=== PATIENT | male | born 1975 | race Two or more races ===

== ENCOUNTER 2025-05-03 09:51 | Day surgery (SDC) | payer MEDICAID ==
[2025-05-01 10:03] LABS: Hematocrit 44.6 % (41.0-53.0); Hemoglobin 14.8 g/dL (13.5-17.5); Mean Corpuscular Hemoglobin 28.3 pg (28.0-32.0); Mean Corpuscular Volume 85.4 fL (80.0-100.0); Nucleated Red Blood Cells % 0.1 %
[2025-05-01 10:15] LABS: INR 1.07 (0.9-1.15); Partial Thromboplastin Time 30.0 SEC (24.5-34.5); Prothrombin Time 11.3 sec (9.3-11.8)
[2025-05-01 11:09] LABS: Alanine Aminotransferase 25 U/L (7-40); Alkaline Phosphatase 75 U/L (46-116); Anion Gap 10 (5-15); Calcium 9.1 mg/dL (8.7-10.4); Carbon Dioxide 26 mmol/L (20-31); Chloride 105 mmol/L (98-107); Potassium 3.8 mmol/L (3.5-5.1); Sodium 141 mmol/L (136-145)
[2025-05-01 11:10] LABS: BUN/Creatinine Ratio 11.2 (10.0-20.0); Blood Urea Nitrogen 10 mg/dL (9-23); Glucose 106 mg/dL (74-106)
[2025-05-01 11:11] LABS: Total Protein 7.1 g/dL (5.7-8.2)
[2025-05-01 11:12] LABS: Albumin 4.2 g/dL (3.2-4.8)
[2025-05-01 11:53] LABS: Bilirubin, Total 0.4 mg/dL (0.2-1.0)
[~2025-05-03] VITALS: Ht 152.4 cm; Wt 70.8 kg
[~2025-05-03 09:51] MED LIST: LOSA-535 PO
[2025-05-03] MEDS: MIDAZOLAM HCL 2MG/2ML 2ml VIAL (1mg/ml) ONE (12:18)
[2025-05-03] MEDS: fentaNYL CITRATE 100 MCG/2 ML VL ONE (12:18)
--- NOTE | 2025-05-03 12:36 | DVHNC2 ---
Procedure - PROCEDURE DATE: 05/03/2025 PROCEDURE PERFORMED BY: Beth Causey MD REFERRING PROVIDER: Patient does not recall the name but is at [facility] PROCEDURE PERFORMED: 1. Colonoscopy with moderate sedation PRE-PROCEDURE DIAGNOSIS: 1. Colon cancer screening POSTPROCEDURE DIAGNOSIS: 1. Normal colon INDICATIONS FOR PROCEDURE: The patient is a 49-year-old male who presents for outpatient colonoscopy for screening MEDICATIONS USED: 4mg of Versed IV and 100 mcg of fentanyl IV DETAILS OF THE PROCEDURE: Informed consent was obtained after risks benefits and alternatives were discussed at length with the patient. The patient gave consent to the procedure as well as the medication used for sedation. The patient was placed in left lateral decubitus position. Digital rectal exam showed no abnormalities. An Olympus pediatric colonoscope was inserted into the rectum and advanced to the cecum. The cecum was identified by the ileocecal valve and the appendiceal orifice. The scope was then withdrawn. [place] bowel prep score of 8 was noted. There were no large polyps, masses, strictures, or arteriovenous malformation seen. Retroflexion showed no abnormalities. The patient tolerated the procedure well. START TIME: 1223 CECUM TIME: 1227 END TIME: 1233 IMPRESSION: 1. Normal colonoscopy in an average risk colon cancer screening patient RECOMMENDATIONS: 1. Follow up with primary care physician 2. High-fiber diet 3. Repeat colonoscopy in 10 years unless otherwise indicated BETH CAUSEY MD May 03, 2025 12:36
[2025-05-03 12:40] VITALS: PULSE 71; RESP 12; TEMP 98.1; O2SAT 94
[2025-05-03 13:35] VITALS: BP 118/74; PULSE 64; RESP 14; O2SAT 95
== END 2025-05-03 13:30 | disposition home or self-care (01) ==
LOC: GI 09:51
PROVIDERS: ATTEND Specialist
DX: Z12.11 Encounter for screening for malignant neoplasm of colon (principal); I10 Essential (primary) hypertension; Z79.899 Other long term (current) drug therapy
CPT/HCPCS: 36415; 45378; 80053; 85025; 85610; 85730; J2250; J3010